=== PATIENT | male | born 1985 | race Caucasian/White ===

== ENCOUNTER 2019-10-15 04:31 | Outpatient (CLI) | payer OTHER, SELFPAY ==
[2019-10-15 18:08] LABS: SARS-CoV-2 RNA PCR Negative
== END 2019-10-15 04:32 | disposition home or self-care (01) ==
LOC: ANHCOVIDDT 04:32
PROVIDERS: PCP Family Medicine; Visit Provider Otolaryngology
DX: Z01.818 Encounter for other preprocedural examination (principal); Z11.59 Encounter for screening for other viral diseases
CPT/HCPCS: 87635; C9803; U0003

== ENCOUNTER 2019-10-18 00:57 | Day surgery (SDC) | payer OTHER, SELFPAY ==
[2019-10-05 16:00] VITALS: BMI 23.4
--- NOTE | 2019-10-11 06:29 | PM.HPGS ---
History of Present Illness History of Present Illness Consent: Risks, benefits, and alternatives have been discussed and questions answered. Patient agrees to proceed with procedure. Chief complaint: Chronic Tonsillitis Narrative: Romeo Hoyos is a 34 year old male with recurring episodes of tonsillitis he has been on multiple antibiotics he has chronic sore throats and he is admitted for tonsillectomy Review of Systems Review of Systems: All systems reviewed & are unremarkable except as noted in HPI and below PMFSH Social History Social History Smoking status: Former smoker Alcohol intake: current Meds Home Medications and Allergies Home Medications Medication Instructions Recorded Confirmed Type clindamycin HCl 300 mg capsule 300 mg PO Q8H #30 cap 10/05/19 10/05/19 Rx fexofenadine 60 mg tablet 60 mg PO Q12H 10/05/19 10/05/19 History fluticasone propionate 50 1 spray NASAL DAILY 10/05/19 10/05/19 History mcg/actuation nasal spray,suspension ibuprofen 200 mg capsule 200 mg PO Q6H PRN 10/05/19 10/05/19 History Allergies Allergy/AdvReac Type Severity Reaction Status Date / Time No Known Allergies Allergy Verified 10/05/19 15:48 Exam HENMT: Other: has examination reveals enlarged tonsils they are markedly cryptic in nature mouth oropharynx otherwise is normal tongue is normal chest clear hilar murmurs Abusin soft tissues Zaiz negative hypertrophic tonsils and adenoids chronic tonsillitis plan tonsillectomy risks procedure been explained consent obtained Assessment and Plan Additional Plan Plan is to remove his tonsils for his chronic tonsillitis
--- NOTE | 2019-10-17 12:56 | P.PNAN_ITS ---
Anes - Initial Pre Proc Eval Procedure: Operation Date: 10/18/19 09:30 Proposed Procedures p Tonsillectomy - Wesley Moraes MD Date/Time: 10/17/19 12:56 Surgeon: Wesley Moraes MD Pre Op Diagnosis: Chronic Tonsillitis Patient Data Age: 34 Gender: M Height: 1.8 m Weight: 76.2 kg Allergies Allergy/AdvReac Type Severity Reaction Status Date / Time No Known Allergies Allergy Verified 10/18/19 08:01 Home Medications Medication Instructions Recorded Confirmed Type clindamycin HCl 300 mg capsule 300 mg PO Q8H #30 cap 10/05/19 10/18/19 Rx fexofenadine 60 mg tablet 60 mg PO Q12H 10/05/19 10/18/19 History fluticasone propionate 50 1 spray NASAL DAILY 10/05/19 10/18/19 History mcg/actuation nasal spray,suspension ibuprofen 200 mg capsule 200 mg PO Q6H PRN 10/05/19 10/18/19 History Patient hx anesthesia problems: none Family hx anesthesia problems: none [facility] Social History Social History Smoking status: Former smoker Alcohol intake: current Anes - Eval Final PreProcedure Day of Procedure 10/17/19 12:56 Patient weight: normal Heart: regular rate and rhythm Lungs: clear to auscultation and normal air movement Airway: Mallampati scale class II Neurological: alert and oriented Last oral intake: >/= 8 hours ASA classification: II Emergent: no Anesthetic plan: proceed Anesthesia type and monitoring: general ETT Informed Consent: The patient's anesthetic plan and its attendant risks and benefits were discussed with the patient/family/POA. Questions were solicited and answers provided to the satisfaction of the patient/family/POA.
[2019-10-18] VITALS (7 sets, daily range): BP systolic 97–124; BP diastolic 48–72; PULSE 73–91; RESP 12–20; TEMP 36.2–36.4; O2SAT 96–99
--- NOTE | 2019-10-18 06:09 | WPDHPUPDATE1 ---
History and Physical Update Update Date/Time: 10/18/19 06:09 History and Physical has been reviewed, including an updated exam of the patient. There are NO changes in the patient's condition. Risks, benefits, and alternatives have been discussed and questions answered. Patient agrees to proceed with procedure.
[2019-10-18] MEDS: LACTATED RINGERS 1,000 ML 30 ML IV CONT (08:20)
--- NOTE | 2019-10-18 10:05 | PM.PROC ---
Procedure Note - Detailed Date of procedure: 10/18/19 Pre-op diagnosis: Chronic Tonsillitis Post-op diagnosis: same Procedure performed: Tonsillectomy Description of procedure: Patient was prepped and draped in usual fashion after induction of anesthesia. The McIvor mouth gag was inserted. The tonsils were removed dissection technique hemostasis was obtained electrocautery. The mouth was inspected for bleeding. When stablized patient was awaken and brought to the recovery room in good condition. Anesthesia: GLMA Surgeon: Wesley Moraes MD Estimated blood loss (mL): 15 Drains: No Packing: No Pathology: none sent Complications: No immediate complications Condition: stable Disposition: PACU
== END 2019-10-18 11:58 | disposition home health service (06) ==
PROVIDERS: PCP Family Medicine; Visit Provider Otolaryngology
PROC: (CPT 42826; principal; 2019-10-18 09:30)
DX: J35.01 Chronic tonsillitis (principal); Z87.891 Personal history of nicotine dependence
CPT/HCPCS: 42826; 88302; J0131; J0330; J1100; J2250; J2405; J2704; J3010; J7120

== ENCOUNTER 2019-12-15 10:59 | Outpatient (CLI) | payer OTHER, SELFPAY ==
--- NOTE | ~2019-12-15 | XR_ITS ---
EXAMINATION: XR chest 2V EXAM DATE: 12/15/2019 11:21 INDICATION: Cough. TECHNIQUE: Frontal and lateral projections of the chest obtained and reviewed. There is no prior rex dy for comparison. FINDINGS: The lungs are clear. There are no pleural effusions. The cardiomediastinal silhouette is within normal limits. There is no pneumothorax suspected. The bones and soft tissues are unremarkab le. IMPRESSION: Normal chest x-ray exam. Reviewed, dictated and finalized at location A. IMPRESSION: Normal chest x-ray exam.
== END 2019-12-15 11:00 | disposition home or self-care (01) ==
LOC: ANHIMG 11:09
PROVIDERS: PCP Family Medicine; Visit Provider Family Medicine
DX: R05 Cough (principal)
CPT/HCPCS: 71046

== ENCOUNTER 2021-01-30 14:21 | Emergency (ER) | payer OTHER, SELFPAY ==
[2021-01-30 14:32] VITALS: BP 140/77; PULSE 97; RESP 20; TEMP 37.4; O2SAT 96
--- NOTE | 2021-01-30 15:04 | ED.URI ---
HPI - URI/Sore Throat General Chief Complaint: Upper Respiratory Infection Stated Complaint: Cough,Sore Throat,Chills Time Seen by Provider: 01/30/21 14:44 Source: patient and RN notes reviewed Mode of arrival: ambulatory Limitations: no limitations History of Present Illness HPI Narrative: Patient presents today complaining of a 10-day history of sore throat, cough, postnasal drip, nasal congestion and sinus pressure. 4 days ago, patient had a fever of 100.8 as well. He has been taking DayQuil and NyQuil as well as his normal Singulair and albuterol. Currently rates his sore throat 06/27. MD elicited complaint: fever, cough, sore throat, nasal congestion and sinus pain Related Data Allergies Allergy/AdvReac Type Severity Reaction Status Date / Time No Known Allergies Allergy Verified 01/30/21 14:30 Review of Systems Review of Systems: CONSTITUTIONAL: Denies body aches, chills, or sweats.+ Fever EYES: Denies visual changes, redness, or discharge. ENT: Denies rhinorrhea, or otalgia.+ Postnasal drip, nasal congestion, sinus pressure, sore throat CARDIOVASCULAR: Denies chest pain, palpitations, or edema. RESPIRATORY: Denies dyspnea.+ Cough GASTROINTESTINAL: Denies abdominal pain, nausea, vomiting, or diarrhea. GENITOURINARY: Denies dysuria or hematuria. SKIN: Denies rash, itching, or wounds. MUSCULOSKELETAL: Denies back pain, joint pain, or myalgia. NEUROLOGIC: Denies headache, numbness, tingling, or weakness. PSYCH: Denies depression or anxiety. [facility] Past Medical History Medical History (Updated 01/30/21 @ 15:08 by Pretty Mcgregor, KURT, ) Chronic tonsillar hypertrophy Cough Tonsillitis Family History Family History Other Diabetes mellitus Family history of coronary artery disease Family history of cystic fibrosis Social History Social History Smoking status: Former smoker Alcohol intake: current Comments At time of signature, I have reviewed and agree with nursing past medical, surgical, social and family history unless otherwise noted. Please see nursing chart for further information. There is no relevant family history pertinent to the presenting complaint Exam Narrative: GENERAL: Well-appearing, well-nourished, and in no acute distress. HEAD: Normocephalic, atraumatic. EYES: EOMI. No redness or drainage. Conjunctivae normal. ENT: Mucous membranes pink and moist. Nares clear. No rhinorrhea. TMs normal bilaterally. Throat mildly erythematous without edema or exudate. Uvula midline. NECK: Normal AROM. Supple. No lymphadenopathy. CHEST: No respiratory distress. Slight end expiratory wheeze throughout, otherwise clear. HEART: Regular rate and rhythm. No murmur appreciated. Normal peripheral pulses. EXTREMITIES: Normal range of motion. No edema. SKIN: Warm, dry, no rash. Capillary refill normal. Normal skin turgor. NEURO: No focal deficits. Alert and oriented x3. Gait steady. PSYCH: Normal affect. No signs of depression or anxiety. Course Vital Signs Vital signs: Vital Signs Temperature 99.3 F 01/30/21 14:32 Pulse Rate 97 01/30/21 14:32 Respiratory Rate 20 01/30/21 14:32 Blood Pressure 140/77 01/30/21 14:32 Pulse Oximetry 96 01/30/21 14:32 Temperature 99.3 F 01/30/21 14:32 Pulse Rate 97 01/30/21 14:32 Respiratory Rate 20 01/30/21 14:32 Blood Pressure 140/77 01/30/21 14:32 Pulse Oximetry 96 01/30/21 14:32 Reviewed. Pt has been instructed to follow up with his PCP regarding his elevated blood pressure today. MDM - URI/Sore Throat Differential Diagnosis Differential diagnosis: Likely upper respiratory infection, sinusitis, viral infection, bronchitis, pharyngitis and other (Strep throat, COVID-19) Lab Data Attestation: I reviewed the patient's lab results. Lab results narrative: Rapid strep negative, rapid COVID-19 test negat
== END 2021-01-30 15:10 | disposition home or self-care (01) ==
PROVIDERS: Emergency Provider Nurse Practitioner; PCP Family Medicine
DX: J40 Bronchitis, not specified as acute or chronic (principal); J01.90 Acute sinusitis, unspecified; Z20.822 Contact with and (suspected) exposure to COVID-19; Z87.891 Personal history of nicotine dependence
CPT/HCPCS: 87081; 87426; 87880; 99213; C9803; G0463

== ENCOUNTER 2022-01-10 00:18 | Day surgery (SDC) | payer OTHER, SELFPAY ==
[2021-12-25 14:43] VITALS: BMI 26.5
--- NOTE | 2022-01-09 16:38 | PM.HPGS ---
History of Present Illness History of Present Illness Consent: Risks, benefits, and alternatives have been discussed and questions answered. Patient agrees to proceed with procedure. Chief complaint: cough, GERD Narrative: Gustavo Hoyos is a 36 year old male referred for endoscopy because of persistent reflux symptoms. 1 of his primary symptoms is that he has been coughing. this happens day and night. He has been tried on pantoprazole, but is not sure that is helping . He has a constant sore throat for the past few years in fact for the last several weeks is been continuous, 24 hours a day. He saw an Ear Nose Throat physician who said that he is very red and attributed his symptoms to reflux. he also has had difficulty swallowing. Lately for instance If he eats hamburger it may feel as though it is caught in his throat. He will have to drink some water to help it get down. He has not lost weight. Review of Systems Review of Systems: All systems reviewed & are unremarkable except as noted in HPI and below PMFSH Past Medical History Medical History BMI 28.0-28.9,adult Chronic tonsillar hypertrophy Cough Tonsillectomy planned Tonsillitis Family History Family History Father Heart disease Acute myocardial infarction Heart valve replaced Mother No problems noted. 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 Gender identity (if verbalized by the patient): Male Meds Home Medications and Allergies Home Medications Medication Instructions Recorded Confirmed Type albuterol sulfate 90 mcg/actuation 1 inhalation inhalation Q4H PRN 12/15/19 12/25/21 Rx aerosol inhaler shortness of breath or wheezing #8 grams montelukast 10 mg tablet 10 mg PO DAILY #90 tabs 01/16/20 12/25/21 Rx (Singulair) fluticasone propionate 50 1 spray intranasal DAILY 02/06/21 12/25/21 History mcg/actuation nasal spray,suspension (Flonase Allergy Relief) pantoprazole 20 mg tablet,delayed 20 mg PO QAM 4 weeks #28 tabs 12/30/21 Rx release Allergies Allergy/AdvReac Type Severity Reaction Status Date / Time No Known Allergies Allergy Verified 01/10/22 08:32 Exam Const: General: alert Orientation/consciousness: patient oriented x3 Resp: Auscultation: clear to auscultation bilaterally Cardio: Rhythm: regular rhythm GI: GI Palp: Yes Soft to palpation and No Tenderness to palpation present (GI) Neuro: General: patient oriented x3 Assessment and Plan Assessment and plan (1) GERD (gastroesophageal reflux disease): Code(s): K21.9 - Gastro-esophageal reflux disease without esophagitis Status: Acute Assessment and Plan: EGD with possible biopsy or dilatation or cautery.
[2022-01-10 08:32] VITALS: BP 132/68; PULSE 69; RESP 17; TEMP 36.4; O2SAT 98
[2022-01-10] MEDS: LACTATED RINGERS 1,000 ML 150 ML IV CONT (08:41)
--- NOTE | 2022-01-10 08:56 | WPDANESEPPF ---
Anes - Initial Pre Proc Eval Procedure: Operation Date: 01/10/22 09:30 Proposed Procedures p Esophagogastroduodenoscopy - Ken Dunn MD Date/Time: 01/10/22 08:56 Surgeon: Ken Dunn MD Pre Op Diagnosis: cough, GERD Patient Data Age: 36 Gender: M Height: 1.8 m Weight: 91.9 kg Last Vital Signs Temp 97.5 F L 01/10/22 08:32 Pulse 69 01/10/22 08:32 Resp 17 01/10/22 08:32 BP 132/68 01/10/22 08:32 Pulse Ox 98 01/10/22 08:32 O2 Del Method Room Air 01/10/22 08:32 Allergies Allergy/AdvReac Type Severity Reaction Status Date / Time No Known Allergies Allergy Verified 01/10/22 08:32 Home Medications Medication Instructions Recorded Confirmed Type albuterol sulfate 90 mcg/actuation 1 inhalation inhalation Q4H PRN 12/15/19 12/25/21 Rx aerosol inhaler shortness of breath or wheezing #8 grams montelukast 10 mg tablet 10 mg PO DAILY #90 tabs 01/16/20 12/25/21 Rx (Singulair) fluticasone propionate 50 1 spray intranasal DAILY 02/06/21 12/25/21 History mcg/actuation nasal spray,suspension (Flonase Allergy Relief) pantoprazole 20 mg tablet,delayed 20 mg PO QAM 4 weeks #28 tabs 12/30/21 Rx release Patient hx anesthesia problems: none Family hx anesthesia problems: none Results Review: All pre-operative results and documents have been reviewed as part of the pre-operative evaluation. [facility] Past Medical History Medical History BMI 28.0-28.9,adult Chronic tonsillar hypertrophy Cough Tonsillectomy planned Tonsillitis Family History Family History Father Heart disease Acute myocardial infarction Heart valve replaced Mother No problems noted. 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 Informed Consent: The patient's anesthetic plan and its attendant risks and benefits were discussed with the patient/family/POA. Questions were solicited and answers provided to the satisfaction of the patient/family/POA.
[2022-01-10] MEDS: BENZOCAINE (*SP) 60 ML SPRAY CAN (HURRICAINE) 1 SPRAY MUCOUS MEM (09:30)
[2022-01-10 09:47] VITALS: BP 105/66; PULSE 70; RESP 19; O2SAT 95
[2022-01-10 09:57] VITALS: BP 110/77; PULSE 71; RESP 20; O2SAT 96
[2022-01-10 10:07] VITALS: BP 115/76; PULSE 70; RESP 22; O2SAT 100
== END 2022-01-10 10:12 | disposition home or self-care (01) ==
PROVIDERS: PCP Family Medicine; Visit Provider Internal Medicine Gastroenterology
PROC: 0DJ08ZZ Inspection of Upper Intestinal Tract, Via Natural or Artificial Opening Endoscopic (ICD-10-PCS; CPT 43235; principal; 2022-01-10 09:30)
DX: K21.00 Gastro-esophageal reflux disease with esophagitis, without bleeding (principal); K22.2 Esophageal obstruction; D13.1 Benign neoplasm of stomach; R50.9 Fever, unspecified; Z79.51 Long term (current) use of inhaled steroids; Z87.891 Personal history of nicotine dependence; J02.9 Acute pharyngitis, unspecified
CPT/HCPCS: 43239; 43249; 88305; C1726; J2704; J7120

== ENCOUNTER 2022-02-15 15:30 | Emergency (ER) | payer OTHER, SELFPAY ==
[2022-02-15 15:40] VITALS: BP 135/75; PULSE 97; RESP 18; TEMP 36.3; O2SAT 97
--- NOTE | 2022-02-15 15:46 | ED.GENADULT ---
HPI - General Adult General Chief complaint: Ear Stated complaint: lt ear pain History of Present Illness HPI narrative: Patient is a 36 y/o male who presents to the [facility] via POV for an evaluation of left ear pain that has been present for a few days. Additionally, he reports nasal congestion and runny nose began 1 week ago. OTC meds and nasal rinses are providing some relief. Nothing worsens symptoms. Related Data Allergies Allergy/AdvReac Type Severity Reaction Status Date / Time No Known Allergies Allergy Verified 01/10/22 08:32 Review of Systems Review of Systems: Pertinent negatives fever, chills, sweats, change in appetite, poor p.o. intake, malaise, headache, sinus problems, tinnitus, vertigo, lightheadedness, hearing loss, muffled hearing, ear drainage, nausea, vomiting, sore throat, cough, shortness of breath, lymphadenopathy, chest pain, heart palpitations, and heart murmur. PMFSH Past Medical History Medical History BMI 28.0-28.9,adult Chronic tonsillar hypertrophy Cough Tonsillectomy planned Tonsillitis Family History Family History Father Heart disease Acute myocardial infarction Heart valve replaced Mother No problems noted. 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 There is no relevant family history pertinent to the presenting complaint. Exam Narrative: GENERAL: Well-appearing, well-nourished, and in no acute distress. HEAD: Normocephalic, atraumatic. No sinus tenderness or facial swelling appreciated. EYES: PERRLA and EOMI. No evidence of erythema, swelling, or drainage. ENT:, RIGHT TM BULGING WITH A MODERATE AMOUNT OF CLOUDY FLUID NOTED BEHIND TM. BILATERAL TURBINATES ARE MODERATELY EDEMATOUS. SCANT AMOUNT OF CLEAR NASAL DRAINAGE NOTED TO BILATERAL NARES. LEFT TM NORMAL. Bilateral external ears and ear canals normal. No TM perforation. No epistaxis. Bilateral turbinates without erythema/ swelling. Mucous membranes moist and pink. Uvula is midline without erythema and swelling. No evidence of petechial rash, cobblestoning, lesions, ulcers, erythema, swelling, exudates, peritonsillar abscess, tenting, or drooling. Breath odor and voice normal. NECK: Supple. No Lymphadenopathy or nuchal rigidity appreciated. CHEST: Bilateral lung river are clear to auscultation. No respiratory distress. No evidence of cough or pleuritic cp upon examination. HEART: Regular rate and rhythm. No murmur, gallop, or rub heard. EXTREMITIES: Normal range of motion. No edema. SKIN: Warm, dry, no rash. NEURO: No focal deficits. Alert and oriented x3. Course Course Emergency Course: Amoxicillin for treatment of otitis media. Steroids for treatment of URI symptoms Follow-up with PCP within 2-3 days for continuance of care Level of Care: Express Care Visit Vital Signs Vital signs: Vital Signs Temperature 97.4 F L 02/15/22 15:40 Pulse Rate 97 02/15/22 15:40 Respiratory Rate 18 02/15/22 15:40 Blood Pressure 135/75 02/15/22 15:40 Pulse Oximetry 97 02/15/22 15:40 Oxygen Delivery Room Air 02/15/22 15:40 Temperature 97.4 F L 02/15/22 15:40 Pulse Rate 97 02/15/22 15:40 Respiratory Rate 18 02/15/22 15:40 Blood P
== END 2022-02-15 16:10 | disposition home or self-care (01) ==
PROVIDERS: Emergency Provider Nurse Practitioner Family; PCP Family Medicine
DX: H66.92 Otitis media, unspecified, left ear (principal); Z87.891 Personal history of nicotine dependence
CPT/HCPCS: 99213; G0463

== ENCOUNTER 2023-07-16 09:06 | Outpatient (CLI) | payer OTHER, SELFPAY ==
--- NOTE | ~2023-07-16 | CT_ITS ---
EXAMINATION: CT sinus wo con DATE: 07/16/2023 09:19 INDICATION: Chronic sinusitis TECHNIQUE: Computed tomography (CT) of the paranasal sinuses was performed without intravenous contra st. The dose-length product was 299.47 mGy-cm. Automated exposure control and iterative reconstructio n technique were employed. COMPARISON: No prior studies for comparison. FINDINGS: There is mucosal thickening of the ethmoid, maxillary and sphenoid sinuses. The frontal sin uses are not developed. There is mucoperiosteal reaction of the maxillary sinuses. There are surgical changes of the maxillary sinuses bilaterally. Leftward nasal septal deviation. There is a left masto id effusion. IMPRESSION: 1. Advanced pansinusitis which appears chronic. 2: Left mastoid effusion. Reviewed, dictated and finalized at location L.
== END 2023-07-16 09:07 ==
LOC: MICIMG 09:07
PROVIDERS: PCP Otolaryngology; Visit Provider Otolaryngology
DX: J32.4 Chronic pansinusitis (principal); H74.8X2 Other specified disorders of left middle ear and mastoid
CPT/HCPCS: 70486

== ENCOUNTER 2023-08-12 01:27 | Emergency (ER) | payer OTHER, SELFPAY ==
--- NOTE | ~2023-08-12 | CT_ITS ---
CT of the Abdomen and Pelvis: Indication: Abdominal pain Technique: 2.5 mm axial scans were obtained through the abdomen and pelvis following intravenous adm inistration of 100 cc of Omnipaque 350. Dose reduction technique was used on this scan by utilizing a utomated exposure control and iterative reconstruction technique. The dose-length product (DLP) was 6 53.71 mGy-cm. Findings: Scans through the lung bases demonstrate focal semisolid/ground glass opacity/consolidatio n in the right lower lobe (axial image 4), questionable minimal tree-in-bud opacities in the right mi ddle lobe and left lower lobe.. The liver, spleen, pancreas, gallbladder, adrenals and kidneys are within normal limits. No evidence of aortic aneurysm. No lymphadenopathy. No bowel obstruction or bowel wall thickening. There is no evidence to suggest acute appendicitis. Images through the pelvis were performed. Urinary bladder unremarkable. No pelvic mass seen. No ascit es. Impression: Findings at the lung bases, as detailed above, suspicious for infectious/inflammatory process. No other significant findings in the abdomen or pelvis. Reviewed, dictated and finalized at location . Impression: Findings at the lung bases, as detailed above, suspicious for infectious/inflam matory process. No other significant findings in the abdomen or pelvis.
[2023-08-12 01:31] VITALS: BP 145/82; PULSE 79; RESP 16; TEMP 36.6; O2SAT 98
[2023-08-12 01:51] LABS: Basophils Absolute Auto 0.1 K/mm3 (0.0-0.1); Basophils Percent Auto 0.4 % (0.2-1.2); Eosinophils Absolute Auto 0.2 K/mm3 (0-0.3); Eosinophils Percent Auto 1.4 % (0-4.4); Hematocrit 42.9 % (42.0-52.0); Hemoglobin 14.5 g/dL (14.0-18.0); Immature Granulocyte Absolute 0.05 K/mm3 (0.00-0.031); Immature Granulocyte Percent A 0.3 % (0-0.5); Lymphocytes Absolute Auto 3.76 K/mm3 (0.9-3.2); Lymphocytes Percent Auto 24.3 % (18.3-44.2); Mean Corpuscular HGB Conc 33.8 g/dl (32-36); Mean Corpuscular Hemoglobin 30.6 pg (26-34); Mean Corpuscular Volume 90.5 fl (80-100); Mean Platelet Volume 8.6 fl (7.4-10.4); Monocytes Absolute Auto 1.2 K/mm3 (0.1-0.6); Monocytes Percent Auto 7.4 % (2.6-8.5); Neutrophils Absolute Auto 10.2 K/mm3 (1.3-6.7); Neutrophils Percent Auto 66.2 % (45.5-73.1); Platelet Count Result 299 k/mm3 (150-375); Red Blood Count 4.74 M/mm3 (4.6-6.20); Red Cell Distribution Width 12.8 % (11.5-14.5); White Blood Count 15.5 K/mm3 (4.5-10.0)
[2023-08-12 01:56] LABS: Appearance Urine Clear (Clear); Bilirubin Urine Negative (Negative); Blood Urine Negative (Negative); Color Urine Yellow (Yellow); Glucose Urine UA Negative (Negative); Ketones Urine Negative (Negative); Leukocyte Esterase Ur Negative LEU/UL (Negative); Nitrate Urine Negative (Negative); Protein Urine Negative (Negative); Specific Grav Ur 1.017 (1.001-1.035); Urobilinogen Urine 0.2 mg/dL (<2.0); pH Urine 6.5 (5.0-9.0)
[2023-08-12 02:02] LABS: Alanine Aminotransferase 22 U/L (6-50); Albumin Level 4.7 g/dL (3.5-5.1); Alkaline Phosphatase 123 U/L (38-126); Anion Gap 7 mmol/L (4-12); Aspartate Amino Transferase 25 U/L (17-59); Bilirubin,Total 0.5 mg/dL (0.2-1.3); Blood Urea Nitrogen 13 mg/dL (9-20); Calcium 9.6 mg/dL (8.4-10.2); Carbon Dioxide 25 mmol/L (22-30); Chloride 103 mmol/L (98-107); Estimated CRCL calculation 131 ml/min; Estimated Glomerular Filt Rate > 60; Glucose 124 mg/dL (65-110); Lipase 160 U/L (23-300); Potassium 3.6 mmol/L (3.4-5.0); Sodium 135 mmol/L (137-145)
[2023-08-12 02:02] LABS: Add Urine Microscopic? NO
--- NOTE | 2023-08-12 05:03 | ED.ABDPAIN ---
HPI - Abdominal Pain General Chief Complaint: Abdominal Pain Stated Complaint: abd pain, nausea Time Seen by Provider: 08/12/23 04:31 History of Present Illness HPI narrative: Patient is a 38-year-old male who presents to the emergency department this evening complaining of generalized abdominal pain. Patient states that pain initially started on Thursday but it did subside, however, this evening pain returned and has been persistent since then. Patient denies any similar symptoms in the past. He admits to history of acid reflux, admits to marijuana use but states that he has not smoked marijuana in a while and denies any previous abdominal surgeries. Patient admits to nausea and vomiting and denies any diarrhea or constipation. Related Data Home Medications Medication Instructions Recorded Confirmed azelastine 137 mcg (0.1 %) nasal 1 spray intranasal ONCE 02/26/22 08/11/23 spray aerosol fexofenadine 180 mg tablet 180 mg PO DAILY 04/16/23 08/11/23 (Indira Allergy) fluticasone fur. 200 mcg-umeclid 1 inh inhalation DAILY 04/16/23 08/11/23 62.5 mcg-vilant 25 mcg inhalat.powder (Trelegy Ellipta) albuterol sulfate 90 mcg/actuation 1 inh inhalation QID PRN Shortness 08/11/23 08/11/23 aerosol inhaler Of Breath fluticasone propionate 50 1 spray intranasal Q12H 08/11/23 08/11/23 mcg/actuation nasal spray,suspension Allergies Allergy/AdvReac Type Severity Reaction Status Date / Time No Known Allergies Allergy Verified 08/11/23 10:23 Review of Systems Review of Systems: All systems are reviewed and are negative unless stated otherwise in the HPI. [facility] Past Medical History Medical History BMI 27.0-27.9,adult BMI 28.0-28.9,adult Chronic tonsillar hypertrophy Cough Tonsillectomy planned Tonsillitis Family History Family History Father Heart disease Acute myocardial infarction Heart valve replaced Mother No problems noted. 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 HEENT: PERRL, no rhinorrhea, no post nasal drip, oropharynx clear. Neck: Trachea midline, no JVD, no lymphadenopathy. Cardiovascular: Regular rate and rhythm, no murmurs, rubs or gallops, no peripheral edema. Respiratory: Clear to auscultation bilaterally, no tachypnea, no wheezing, no rhonchi, no rubs, no respiratory distress. Abdomen: Soft, nontender, nondistended, no rebound, no guarding, no peritoneal signs. Musculoskeletal: No joint swelling or deformity, normal muscle tone. Skin: No rashes or petechia, no signs of infection. Psychiatric: Alert and oriented, normal behavior and judgment for situation. Neurological: Alert and oriented to person, place, and time. Follows all commands. No focal deficits, speech is clear and fluent. Course Vital Signs Vital signs: Vital Signs Temperature 97.8 F 08/12/23 01:31 Pulse Rate 79 08/12/23 01:31 Respiratory Rate 16 08/12/23 01:31 Blood Pressure 145/82 H 08/12/23 01:31 Pulse Oximetry 98 08/12/23 01:31 Oxygen Delivery Room Air 08/12/23 01:31 Temperature 97.8 F 08/12/23 01:31 Pulse Rate 79 08/12/23 01:31 Respiratory Rate 16
[2023-08-12] MEDS: ONDANSETRON INJ 4 MG/2 ML VIAL IV PUSH (05:06)
[2023-08-12] MEDS: SODIUM CHLORIDE 0.9% IV 1,000 ML 999 ML IV CONT (05:06)
[2023-08-12] MEDS: PANTOPRAZOLE SODIUM IV 40 MG VIAL IV PUSH (05:08)
[2023-08-12] MEDS: DICYCLOMINE HCL INJ 20 MG/2 ML VIAL IM (05:09)
[2023-08-12] MEDS: SUCRALFATE 1 GM TABLET PO (06:04)
[2023-08-12] MEDS: MORPHINE SULFATE (*CRX) 2 MG/ML INJ IV PUSH (06:05)
[2023-08-12 06:53] VITALS: BP 129/85; PULSE 90; RESP 18; TEMP 36.6; O2SAT 100
== END 2023-08-12 06:56 | disposition home or self-care (01) ==
PROVIDERS: Emergency Provider Emergency Medicine; PCP Family Medicine
DX: R10.13 Epigastric pain (principal); Z87.891 Personal history of nicotine dependence
CPT/HCPCS: 36415; 74177; 80053; 81003; 83690; 85025; 96361; 96372; 96374; 96375; 99284; A9270; C9113; J0500; J2270; J2405; J7030; Q9967

== ENCOUNTER 2023-08-18 00:11 | Day surgery (SDC) | payer OTHER, SELFPAY ==
[2023-08-11 10:24] VITALS: BMI 27.8
--- NOTE | 2023-08-11 10:28 | PC.NURSE ---
Report to the Outpatient Waiting Room, entrance under the green pavilion located off [facility], at time 0700 on date 08/18/23. Planned Procedure Time: 0900. Time changes happen often and if your time is changed the preop area will call you the afternoon before. - You and your visitor will be asked to self-screen and do not enter if you have any COVID symptoms. - A mask is optional within the hospital at this time. Patients may have clear liquids (water, carbonated beverages, clear teas, apple juice) until 3 hours prior to surgery with a maximum of 20 ounces. - No food from midnight until time of surgery Take the following medications with a SIP of water the morning of surgery: INHALER (AND BRING ALBUTEROL) DO NOT STOP ANY OF YOUR OTHER PRESCRIPTION MEDICATIONS PRIOR TO SURGERY ?EXCEPT THE FOLLOWING Medications to discontinue per physician: N/A Date to take last dose: N/A Please no make-up, nail thai, hairspray, perfume, deodorant, or body powder the day of surgery. No jewelry (including any body piercings) or valuables the day of surgery, leave them at home. Please take a shower or bath the night before, or the morning of, surgery with an antibacterial soap. Wear comfortable, loose fitting clothing. - Jewelry must be removed prior to entering the operating room. Rings and piercings that are not removed may be cut off. - The hospital will not accept responsibility for valuables. - Please leave all valuables, including medications, at home the day of surgery. If you are going home after surgery, a licensed regional company hazmat tanker driver must drive you home. - NO public transportation without another adult if you receive anesthesia. - We recommend that an adult stay with you for 24 hours following discharge. - We also recommend that you do not drive, make important decision, drink alcoholic beverages, or take any drugs that were not prescribed by your health care provider for at least 24 hours after your discharge time. Follow any additional instructions given to you from your surgeon. If you or anyone in your household have experienced Covid symptoms in the past week, please notify your surgeon or the nurse liaison at the phone number below for possible testing. Telephone instructions given to PT- ANTONY and asked if any additional questions and then verbalized understanding. Patient advised to call surgeon office or pre surgery nurse liaison [phone] if any additional questions.
--- NOTE | 2023-08-17 17:09 | PM.IMHP ---
H&P: HPI History of Present Illness Date/Time: 08/17/23 17:09 Chief Complaint: chronic sinusitis septal deviation turbinate hypertrophy nasal obstruction Narrative: planned procedure Review of Systems Review of Systems: All systems reviewed & are unremarkable except as noted in HPI and below PMFSH Past Medical History Medical History BMI 27.0-27.9,adult BMI 28.0-28.9,adult Chronic tonsillar hypertrophy Cough Tonsillectomy planned Tonsillitis Family History Family History Father Heart disease Acute myocardial infarction Heart valve replaced Mother No problems noted. 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 200 mcg-umeclid 1 inh inhalation DAILY 04/16/23 08/11/23 History 62.5 mcg-vilant 25 mcg inhalat.powder (Trelegy Ellipta) albuterol sulfate 90 mcg/actuation 1 inh inhalation QID PRN Shortness 08/11/23 08/11/23 History aerosol inhaler Of Breath fluticasone propionate 50 1 spray intranasal Q12H 08/11/23 08/11/23 History mcg/actuation nasal spray,suspension ondansetron 4 mg disintegrating 4 mg PO Q8H PRN nausea and 08/12/23 Rx tablet vomiting #10 tabs pantoprazole 40 mg tablet,delayed 40 mg PO HS 4 weeks #28 tabs 08/12/23 Rx release (Protonix) Allergies Allergy/AdvReac Type Severity Reaction Status Date / Time No Known Allergies Allergy Verified 08/11/23 10:23 Exam Narrative: turbinate hypertrophy septal deviation chronic appearing sinuses Assessment and Plan Assessment and plan (1) Chronic sinusitis: Code(s): J32.9 - Chronic sinusitis, unspecified Status: Acute Assessment and Plan: risks discussed sorry plan or bilateral ESS total ethmoid max is sphenoids septoplasty turbinate reduction bilaterally with outfracture. 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 (2) Nasal septal deviation: Code(s): J34.2 - Deviated nasal septum Status: Acute (3) Hypertrophy of both inferior nasal turbinates: Code(s): J34.3 - Hypertrophy of nasal turbinates Status: Acute
[2023-08-18] VITALS (9 sets, daily range): BP systolic 112–130; BP diastolic 70–83; PULSE 70–115; RESP 12–20; TEMP 36.1–36.6; O2SAT 92–100
[2023-08-18] MEDS: ACETAMINOPHEN 500 MG TABLET 1000 MG PO (07:09)
[2023-08-18] MEDS: LACTATED RINGERS 1,000 ML 30 ML IV CONT ×2 (07:10→12:38)
--- NOTE | 2023-08-18 07:18 | WPDHPUPDATE1 ---
History and Physical Update Update Date/Time: 08/18/23 07:18 History and Physical has been reviewed, including an updated exam of the patient. There are NO changes in the patient's condition. Risks, benefits, and alternatives have been discussed and questions answered. Patient agrees to proceed with procedure. Plan is bilateral maxillary antrostomy, septo turbs total ethmoids sphenoids fareed
--- NOTE | 2023-08-18 08:13 | WPDANESEPPF ---
Anes - Initial Pre Proc Eval Procedure: Operation Date: 08/18/23 09:00 Proposed Procedures p Image Guided Endoscopic Bilateral Maxillary Antrostomy,Bilateral Total Ethmoidectomy, Bilateral Sphenoidotomy, Bilateral Inferior Turbinate Reduction with Outfracture, - Cirilo Lainez MD s Septoplasty - Cirilo Lainez MD Date/Time: 08/18/23 08:13 Surgeon: Cirilo Lainez MD Pre Op Diagnosis: chronic sinusitis, septal deviation Patient Data Age: 38 Gender: M Height: 1.8 m Weight: 85.5 kg Last Vital Signs Temp 36.6 C 08/18/23 06:58 Pulse 87 08/18/23 06:58 Resp 16 08/18/23 06:58 BP 124/79 08/18/23 06:58 Pulse Ox 97 08/18/23 06:58 O2 Del Method Room Air 08/18/23 06:58 Allergies Allergy/AdvReac Type Severity Reaction Status Date / Time No Known Allergies Allergy Verified 08/18/23 07:14 Home Medications Medication Instructions Recorded Confirmed Type montelukast 10 mg tablet 10 mg PO DAILY #90 tabs 01/16/20 08/11/23 Rx (Singulair) azelastine 137 mcg (0.1 %) nasal 1 spray intranasal ONCE 02/26/22 08/11/23 History spray aerosol fexofenadine 180 mg tablet 180 mg PO DAILY 04/16/23 08/11/23 History (Indira Allergy) fluticasone fur. 200 mcg-umeclid 1 inh inhalation DAILY 04/16/23 08/11/23 History 62.5 mcg-vilant 25 mcg inhalat.powder (Trelegy Ellipta) albuterol sulfate 90 mcg/actuation 1 inh inhalation QID PRN Shortness 08/11/23 08/11/23 History aerosol inhaler Of Breath fluticasone propionate 50 1 spray intranasal Q12H 08/11/23 08/11/23 History mcg/actuation nasal spray,suspension ondansetron 4 mg disintegrating 4 mg PO Q8H PRN nausea and 08/12/23 08/18/23 Rx tablet vomiting #10 tabs pantoprazole 40 mg tablet,delayed 40 mg PO HS 4 weeks #28 tabs 08/12/23 08/18/23 Rx release (Protonix) Patient hx anesthesia problems: none Family hx anesthesia problems: none Results Review: All pre-operative results and documents have been reviewed as part of the pre-operative evaluation. [facility] Past Medical History Medical History BMI 27.0-27.9,adult BMI 28.0-28.9,adult Chronic tonsillar hypertrophy Cough Tonsillectomy planned Tonsillitis Family History Family History Father Heart disease Acute myocardial infarction Heart valve replaced Mother No problems noted. 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 Informed Consent: The patient's anesthetic plan and its attendant risks and benefits were discussed with the patient/family/POA. Questions were solicited and answers provided to the satisfaction of the patient/family/POA.
--- NOTE | 2023-08-18 08:30 | WPDHPUPDATE1 ---
History and Physical Update Update Date/Time: 08/18/23 08:30 History and Physical has been reviewed, including an updated exam of the patient. There are NO changes in the patient's condition. Risks, benefits, and alternatives have been discussed and questions answered. Patient agrees to proceed with procedure. At possible transnasal adenoidectomy
[2023-08-18] MEDS: ceFAZolin 2 GM/D5W 50 ML 2 GM/50 ML BAG IVPB (08:38)
[2023-08-18] MEDS: LIDO 1%/EPINEPHRINE 1:100,000 50 ML VIAL 25 ML INFILTRATE (09:20)
[2023-08-18] MEDS: OXYMETAZOLINE HCL 0.05% NAS 15 ML BTL (*BKC) 1 SPRAY NASAL (09:20)
[2023-08-18] MEDS: MUPIROCIN 2% OINT 22 GM TUBE 1 APPLIC EACH NARE (12:10)
[2023-08-18] MEDS: fentaNYL CITRATE INJ (*CRX) 100 MCG/2 ML VIAL 25 MCG IV PUSH ×4 (12:53→13:13)
--- NOTE | 2023-08-18 13:04 | P.OP_ITS ---
Procedure Note - Detailed Date of Procedure 08/18/23 Pre-op Diagnosis chronic sinusitis, septal deviation , adenoid hypertrophy, turbinate hypertrophy, nasal obstruction Post-op Diagnosis Same Procedure Performed transnasal adenoidectomy, bilateral inferior turbinate reduction with outfracture, endoscopic assisted septoplasty, bilateral image guided endoscopic maxillary antrostomies total ethmoidectomies sphenoidotomies Surgeon Cirilo Lainez MD Anesthesia General Indications see above Findings really osteitic bone diffuse polypoid tissue in all the aforementioned sinuses large turbinates severe left septal deviation large adenoids Description of Procedure patient identified consent verified preop. Patient brought to the operating room. Time-out performed. General anesthesia induced endotracheal tube secured patient prepped draped position procedure confirmed 2nd time-out performed. 0 degree endoscope was sorry image guidance initiated confirmed Afrin-soaked pledgets placed for 5 minutes then removed. 0 degree endoscope utilized total 15 cc 1% lidocaine 1 100 parts epinephrine injected bilateral nasal septum inferior turbinates Josue incision made left side left nasal septal flap elevated no tear osteotome utilized crossover right nasal septal flap elevated no tear deviated septum removed Will Burgess forceps Jorge L forceps osteotome. Bleeding vessel inferiorly bipolar suction Bovie utilized to cauterize it. FloSeal placed suctioned out septum close Josue incision with 3 interrupted 5 0 fast gut sutures. Turbinates entered with 15 blade entered with microdebrider 2.5 Sincere debrided submucosal plane outfracture [place] elevator. Maxillary antrostomies performed with double ball-tip probe straight through cut backbiter image guided suctions image guided 40 degree microdebrider straight microdebrider no damage to nasolacrimal duct no damage to orbit diffuse polypoid tissue in both. Ethmoids performed with [place] straight through cut microdebrider really osteitic bone difficult to get and all the ethmoid cells. Sphenoids very difficult to get into his are very small done so under image guidance with sphenoid punch [place]. We wound copiously irrigated no a pack placed bilaterally Rodrigez splints placed ensured ensured to be lateral to the middle turbinates. Rodrigez splints sutured anteriorly using a 3-0 mattress nylon suture. Wound was copiously irrigated prior to this. Care the patient given Anesthesiology referral date portion was suture no complications. adenoids Bovie with suction Bovie electrocautery setting 30 the rib very large hypert rophied and obstructive no bleeding. Estimated Blood Loss 125 Drains No Packing Yes ( Nova pack) Pathology None sent Complications No immediate complications Condition Stable Disposition PACU [facility] Billing Surgery - Charge Forward: Surgery Billing
[2023-08-18] MEDS: ONDANSETRON INJ 4 MG/2 ML VIAL IV PUSH (13:23)
[2023-08-18] MEDS: oxyCODONE HCL (*CRX) 5 MG TAB IR PO (14:15)
== END 2023-08-18 14:56 | disposition home or self-care (01) ==
PROVIDERS: PCP Family Medicine; Visit Provider Otolaryngology
PROC: (CPT 31256; principal; 2023-08-18 09:00)
PROC: (CPT 30520; 2023-08-18 09:00)
DX: J32.9 Chronic sinusitis, unspecified (principal); J34.2 Deviated nasal septum; J34.3 Hypertrophy of nasal turbinates; J34.89 Other specified disorders of nose and nasal sinuses; Z79.51 Long term (current) use of inhaled steroids; Z87.891 Personal history of nicotine dependence
CPT/HCPCS: 31256; 31257; 61782; 30520; 30140; 42999; A9270; J0330; J0690; J1100; J2250; J2405; J2704; J3010; J7040; J7120

== ENCOUNTER 2023-08-22 12:14 | Emergency (ER) | payer OTHER, SELFPAY ==
[2023-08-22 12:16] VITALS: BP 127/92; PULSE 106; RESP 18; TEMP 36.9; O2SAT 100
--- NOTE | 2023-08-22 12:36 | ED.GENADULT ---
HPI - General Adult General Chief complaint: Unspecified Stated complaint: ENT Time Seen by Provider: 08/22/23 12:26 History of Present Illness HPI narrative: 38-year-old male present to the emergency department for evaluation of increased anxiety due to difficulty breathing through his nose after recent sinus surgery by Dr. Lainez. Patient states approximately 5 days ago he had placement of stents in his sinuses Related Data Home Medications Medication Instructions Recorded Confirmed azelastine 137 mcg (0.1 %) nasal 1 spray intranasal ONCE 02/26/22 08/11/23 spray aerosol fexofenadine 180 mg tablet 180 mg PO DAILY 04/16/23 08/11/23 (Indira Allergy) fluticasone fur. 200 mcg-umeclid 1 inh inhalation DAILY 04/16/23 08/11/23 62.5 mcg-vilant 25 mcg inhalat.powder (Trelegy Ellipta) albuterol sulfate 90 mcg/actuation 1 inh inhalation QID PRN Shortness 08/11/23 08/11/23 aerosol inhaler Of Breath fluticasone propionate 50 1 spray intranasal Q12H 08/11/23 08/11/23 mcg/actuation nasal spray,suspension Allergies Allergy/AdvReac Type Severity Reaction Status Date / Time No Known Allergies Allergy Verified 08/18/23 07:14 Review of Systems Review of Systems: All systems reviewed & are unremarkable except as noted in HPI and below PMFSH Past Medical History Medical History BMI 27.0-27.9,adult BMI 28.0-28.9,adult Chronic tonsillar hypertrophy Cough Tonsillectomy planned Tonsillitis Family History Family History Father Heart disease Acute myocardial infarction Heart valve replaced Mother No problems noted. 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 HEAD: normocephalic, atraumatic. EYES: PERRLA/EOMI, conjunctivae clear. NOSE: Decreased air passage through nostrils bilaterally EARS:TMS clear with good light reflex. THROAT: Pharynx clear, no exudate. NECK: Supple. No adenopathy, no masses. RESPIRATORY: Airway patent, respirations nonlabored. Clear to auscultation bilaterally, no rales, rhonchi, wheezing. CARDIOVASCULAR: Regular rate and rhythm without murmurs rubs or gallops. ABDOMINAL: Soft, nontender, nondistended, normal bowel sounds MUSCULOSKELETAL: Moves all extremities. Strength/ROM intact, No edema, No calf tenderness. NEURO: Alert. Cranial nerves II through XII intact. Grossly SKIN: Warm, dry. Normal Color Course Vital Signs Vital signs: Vital Signs Temperature 98.5 F 08/22/23 12:16 Pulse Rate 106 H 08/22/23 12:16 Respiratory Rate 18 08/22/23 12:16 Blood Pressure 127/92 H 08/22/23 12:16 Pulse Oximetry 100 08/22/23 12:16 Oxygen Delivery Room Air 08/22/23 12:16 Temperature 97.8 F 08/22/23 13:37 Pulse Rate 90 08/22/23 13:37 Respiratory Rate 18 08/22/23 13:37 Blood Pressure 113/81 08/22/23 13:37 Pulse Oximetry 99 08/22/23 13:37 Oxygen Delivery Room Air 08/22/23 12:16 Medical Decision Making MDM Narrative Medical decision making narrative: 38-year-old male presenting to the emergency department for evaluation for nasal congestion with stents after recent sinus surgery. Patient was met in the em
[2023-08-22 12:45] VITALS: BP 121/97; PULSE 110; RESP 20; TEMP 36.6; O2SAT 100
[2023-08-22 13:15] VITALS: BP 118/87; PULSE 107; RESP 18; TEMP 36.6; O2SAT 100
--- NOTE | 2023-08-22 13:19 | WPDPROCEDUR ---
Procedures Other Procedures Procedure 1: Other Procedure: Bilateral nasal endoscopy with debridement. Consent obtained splints removed bilateral nasal passages debrided some packing on the right side I could not get out in the emergency room. Patient tolerated the procedure very well everything looks good
--- NOTE | 2023-08-22 13:19 | WPDCN ---
Assessment and Plan Assessment and plan (1) Nasal crusting: Code(s): J34.89 - Other specified disorders of nose and nasal sinuses Status: Acute Assessment and Plan: Splints removed. Routine postoperative instructions mupirocin ointment 3-4 times per day upfront budesonide irrigations b.i.d. follow-up Thursday when get a closer look on this right side. No strenuous activity for 2 weeks gentle nose blowing is okay open mouth sneezing finish antibiotics finished steroids (2) Sinus congestion: Code(s): R09.81 - Nasal congestion Status: Acute (3) Chronic sinusitis: Code(s): J32.9 - Chronic sinusitis, unspecified Status: Acute HPI Data of Consult Date/Time: 08/22/23 13:19 Primary Care Provider: Yamil Tam MD Consult Narrative Narrative: Gustavo Hoyos is a 38 year old male postop day 4 ESS septo turbs patient could not tolerate splints presents to ER Review of Systems Review of Systems: All systems reviewed & are unremarkable except as noted in HPI and below PMFSH Past Medical History Medical History BMI 27.0-27.9,adult BMI 28.0-28.9,adult Chronic tonsillar hypertrophy Cough Tonsillectomy planned Tonsillitis Family History Family History Father Heart disease Acute myocardial infarction Heart valve replaced Mother No problems noted. 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 200 mcg-umeclid 1 inh inhalation DAILY 04/16/23 08/11/23 History 62.5 mcg-vilant 25 mcg inhalat.powder (Trelegy Ellipta) albuterol sulfate 90 mcg/actuation 1 inh inhalation QID PRN Shortness 08/11/23 08/11/23 History aerosol inhaler Of Breath fluticasone propionate 50 1 spray intranasal Q12H 08/11/23 08/11/23 History mcg/actuation nasal spray,suspension ondansetron 4 mg disintegrating 4 mg PO Q8H PRN nausea and 08/12/23 08/18/23 Rx tablet vomiting #10 tabs pantoprazole 40 mg tablet,delayed 40 mg PO HS 4 weeks #28 tabs 08/12/23 08/18/23 Rx release (Protonix) budesonide 0.25 mg/2 mL suspension 0.25 mg (2 mL) irrigation Q12H 08/18/23 08/18/23 Rx for nebulization #120 mL doxycycline hyclate 100 mg capsule 100 mg PO BID #14 caps 08/18/23 Rx oxycodone 5 mg tablet 5 mg PO .q8-q12h PRN pain #10 tabs 08/18/23 Rx prednisone 5 mg tablet 5 mg PO DAILY #14 tabs 08/18/23 Rx Allergies Allergy/AdvReac Type Severity Reaction Status Date / Time No Known Allergies Allergy Verified 08/18/23 07:14 Vital Signs Vital Signs - 24 hr 08/22/23 12:16 Temperature 36.9 C Pulse Rate 106 H Respiratory Rate 18 Blood Pressure 127/92 H Pulse Oximetry 100 Oxygen Delivery Room Air Exam Narrative: Splints removed things look good procedure
[2023-08-22 13:37] VITALS: BP 113/81; PULSE 90; RESP 18; TEMP 36.6; O2SAT 99
== END 2023-08-22 13:41 | disposition home or self-care (01) ==
PROVIDERS: Emergency Provider Emergency Medicine; PCP Family Medicine
DX: J34.89 Other specified disorders of nose and nasal sinuses (principal); R09.81 Nasal congestion; J32.9 Chronic sinusitis, unspecified; Z98.890 Other specified postprocedural states; Z87.891 Personal history of nicotine dependence
CPT/HCPCS: 30999; 99283

== ENCOUNTER 2023-08-28 11:18 | Outpatient (CLI) | payer OTHER, SELFPAY ==
[2023-08-28 11:41] LABS: Hematocrit 44.8 % (42.0-52.0); Hemoglobin 14.2 g/dL (14.0-18.0); Mean Corpuscular HGB Conc 31.7 g/dl (32-36); Mean Corpuscular Hemoglobin 29.9 pg (26-34); Mean Corpuscular Volume 94.3 fl (80-100); Mean Platelet Volume 8.4 fl (7.4-10.4); Platelet Count Result 415 k/mm3 (150-375); Red Blood Count 4.75 M/mm3 (4.6-6.20); Red Cell Distribution Width 12.7 % (11.5-14.5); White Blood Count 15.1 K/mm3 (4.5-10.0)
== END 2023-08-28 11:19 | disposition home or self-care (01) ==
LOC: ANHLAB 11:19
PROVIDERS: PCP Family Medicine; Visit Provider Nurse Practitioner
DX: D72.829 Elevated white blood cell count, unspecified (principal)
CPT/HCPCS: 36415; 85027

== ENCOUNTER 2023-09-04 12:08 | Outpatient (CLI) | payer OTHER, SELFPAY ==
--- NOTE | ~2023-09-04 | XR_ITS ---
Clinical Indication: Cough PA and lateral views of the chest: Comparison: 12/15/2019 Findings: Probable mild interstitial prominence noted, especially in the right lung. No pleural effus ion.. Cardiomediastinal silhouette is within normal limits. Bones and soft tissues are unremarkable. Impression: Probable mild reticulonodular interstitial prominence. Correlate for atypical infection. Consider tiffany st CT to further evaluate as indicated. Reviewed, dictated and finalized at location M. Impression: Probable mild reticulonodular interstitial prominence. Correlate for atypical i nfection. Consider chest CT to further evaluate as indicated.
== END 2023-09-04 12:09 ==
PROVIDERS: PCP Physician Assistant; Visit Provider Physician Assistant
DX: R05.9 Cough, unspecified (principal)
CPT/HCPCS: 71046

== ENCOUNTER 2023-09-17 07:23 | Outpatient (CLI) | payer OTHER, SELFPAY ==
--- NOTE | ~2023-09-17 | NM_ITS ---
EXAMINATION: NM hepatobiliary wo pharm DATE: 09/17/2023 10:10 INDICATION: Epigastric abdominal pain. Nausea and vomiting. COMPARISON: CT abdomen and pelvis 08/12/2023 TECHNIQUE: 5.0 mCi Tc-99m mebrofenin (Choletec) was administered intravenously. Scintigraphic images of the abdomen were obtained for one hour. Then, the patient drank 8 oz Ensure, and imaging was cont inued for 60 minutes. FINDINGS: There is normal clearance of radiotracer from the blood pool. There is homogeneous tracer u ptake by the liver. Activity progresses to the bowel and gallbladder. Gallbladder ejection fraction (GBEF) was 60%. Note that with this technique, normal GBEF >= 33%. IMPRESSION: 1. Normal hepatobiliary scintigraphy. Reviewed, dictated and finalized at location A.
== END 2023-09-17 07:24 | disposition home or self-care (01) ==
PROVIDERS: PCP Physician Assistant; Visit Provider Nurse Practitioner
DX: R11.2 Nausea with vomiting, unspecified (principal); R10.13 Epigastric pain
CPT/HCPCS: 78226; A9537

== ENCOUNTER 2023-09-24 08:25 | Outpatient (CLI) | payer OTHER, SELFPAY ==
--- NOTE | ~2023-09-24 | US_ITS ---
Limited Abdominal Sonogram: Real-time sonographic imaging of the right upper quadrant was performed. Clinical History: Nausea and vomiting Findings: The liver appears normal with no evidence of mass lesion or bile duct dilatation. Main por arianna vein demonstrates normal direction of flow. The gallbladder is well distended, and appears normal with no evidence of gallstone or wall thickening. The common bile duct measures 3 mm. The visualize d pancreas, aorta, and IVC are unremarkable. Impression: No significant abnormality seen. Reviewed, dictated and finalized at location . Impression: No significant abnormality seen.
== END 2023-09-24 08:26 | disposition home or self-care (01) ==
PROVIDERS: PCP Physician Assistant; Visit Provider Nurse Practitioner
DX: R10.13 Epigastric pain (principal); R11.2 Nausea with vomiting, unspecified
CPT/HCPCS: 76705

== ENCOUNTER 2023-10-06 00:35 | Day surgery (SDC) | payer OTHER, SELFPAY ==
[2023-09-23 11:06] VITALS: BMI 26.1
[2023-10-06 14:15] VITALS: BP 108/66; PULSE 78; RESP 16; TEMP 36.4; O2SAT 97
[2023-10-06] MEDS: LACTATED RINGERS 1,000 ML 150 ML IV CONT (14:21)
--- NOTE | 2023-10-06 14:48 | WPDANESEPPF ---
Anes - Initial Pre Proc Eval Procedure: Operation Date: 10/06/23 14:30 Proposed Procedures p Esophagogastroduodenoscopy - Manoj Ward MD Date/Time: 10/06/23 14:48 Surgeon: Manoj Ward MD Pre Op Diagnosis: GERD, Epigastric pain Patient Data Age: 38 Gender: M Height: 1.8 m Weight: 80.9 kg Last Vital Signs Temp 36.4 C L 10/06/23 14:15 Pulse 78 10/06/23 14:15 Resp 16 10/06/23 14:15 BP 108/66 10/06/23 14:15 Pulse Ox 97 10/06/23 14:15 O2 Del Method Room Air 10/06/23 14:15 Allergies Allergy/AdvReac Type Severity Reaction Status Date / Time No Known Allergies Allergy Verified 10/06/23 14:12 Home Medications Medication Instructions Recorded Confirmed Type montelukast 10 mg tablet 10 mg PO DAILY #90 tabs 01/16/20 10/01/23 Rx (Singulair) fexofenadine 180 mg tablet 180 mg PO DAILY 04/16/23 10/01/23 History (Indira Allergy) fluticasone fur. 200 mcg-umeclid 1 inh inhalation DAILY 04/16/23 10/06/23 History 62.5 mcg-vilant 25 mcg inhalat.powder (Trelegy Ellipta) albuterol sulfate 90 mcg/actuation 1 inh inhalation QID PRN Shortness 08/11/23 10/06/23 History aerosol inhaler Of Breath fluticasone propionate 50 1 spray intranasal Q12H 08/11/23 10/06/23 History mcg/actuation nasal spray,suspension ondansetron 4 mg disintegrating 4 mg PO Q8H PRN nausea and 08/12/23 10/01/23 Rx tablet vomiting #10 tabs budesonide 0.25 mg/2 mL suspension 0.25 mg (2 mL) irrigation Q12H 08/18/23 10/01/23 Rx for nebulization #120 mL mupirocin 2 % topical ointment 1 applic topical .COMPLEX #22 grams 08/24/23 10/01/23 Rx pantoprazole 40 mg tablet,delayed 40 mg PO HS #30 tabs 09/07/23 10/01/23 Rx release (Protonix) hydroxyzine HCl 25 mg tablet 25 mg PO HS 09/16/23 10/01/23 History ciprofloxacin 125 mg irrigation BID #60 caps 10/04/23 Rx Patient hx anesthesia problems: none Family hx anesthesia problems: none Results Review: All pre-operative results and documents have been reviewed as part of the pre-operative evaluation. [facility] Past Medical History Medical History (Updated 10/06/23 @ 15:36 by Cory Rosario DO) Asthma Chronic tonsillar hypertrophy Cough GERD (gastroesophageal reflux disease) Pseudomonas infection in nares - asymptomatic Tonsillectomy planned Tonsillitis Family History Family History Father Heart disease Acute myocardial infarction Heart valve replaced Mother No problems noted. Sibling Cystic fibrosis Lung transplant recipient Other Diabetes mellitus Family history of coronary artery disease Family history of cystic fibrosis Social History Social History Years smoked: 2 Smoking status: Former smoker Tobacco type: cigarettes Second hand tobacco smoke exposure: No Smoking end date: 04/20/03 Alcohol intake: never Substance use: never Substance use type: does not use Do You Feel Safe in your Home?: Yes Lack of Transportation: No Lack of Food: Never True Current Housing: I Have Housing Concerned About Future Housing: No Difficulty Paying Gas/Electric Bills: No Difficulty Paying for Meds: No Currently Unemployed: No Education: Master's Degree or Higher Difficulty w/ Childcare or Family Care: No Living arrangements: with family Occupation/Education: occupation 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
--- NOTE | 2023-10-06 15:00 | SUR.PREOP ---
1300 Patient informed of procedure delay- denies any needs at this time.
--- NOTE | 2023-10-06 15:38 | PM.HPGS ---
History of Present Illness History of Present Illness Consent: Risks, benefits, and alternatives have been discussed and questions answered. Patient agrees to proceed with procedure. Chief complaint: GERD, Epigastric pain Narrative: Gustavo Hoyos is a 38 year old male with episode of epigastric pain weeks ago that prompted ER visit, CT scan negative, no more pain since. Also h/o GERD on ppi which is well controlled, doing ok right now, also changed his diet. Review of Systems Review of Systems: All systems reviewed & are unremarkable except as noted in HPI and below PMFSH Past Medical History Medical History (Updated 10/06/23 @ 15:36 by Cory Rosario, ) Asthma Chronic tonsillar hypertrophy Cough GERD (gastroesophageal reflux disease) Pseudomonas infection in nares - asymptomatic Tonsillectomy planned Tonsillitis Family History Family History Father Heart disease Acute myocardial infarction Heart valve replaced Mother No problems noted. Sibling Cystic fibrosis Lung transplant recipient Other Diabetes mellitus Family history of coronary artery disease Family history of cystic fibrosis Social History Social History Years smoked: 2 Smoking status: Former smoker Tobacco type: cigarettes Second hand tobacco smoke exposure: No Smoking end date: 04/20/03 Alcohol intake: never Substance use: never Substance use type: does not use Do You Feel Safe in your Home?: Yes Lack of Transportation: No Lack of Food: Never True Current Housing: I Have Housing Concerned About Future Housing: No Difficulty Paying Gas/Electric Bills: No Difficulty Paying for Meds: No Currently Unemployed: No Education: Master's Degree or Higher Difficulty w/ Childcare or Family Care: No Living arrangements: with family Occupation/Education: occupation 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 200 mcg-umeclid 1 inh inhalation DAILY 04/16/23 10/06/23 History 62.5 mcg-vilant 25 mcg inhalat.powder (Trelegy Ellipta) albuterol sulfate 90 mcg/actuation 1 inh inhalation QID PRN Shortness 08/11/23 10/06/23 History aerosol inhaler Of Breath fluticasone propionate 50 1 spray intranasal Q12H 08/11/23 10/06/23 History mcg/actuation nasal spray,suspension ondansetron 4 mg disintegrating 4 mg PO Q8H PRN nausea and 08/12/23 10/01/23 Rx tablet vomiting #10 tabs budesonide 0.25 mg/2 mL suspension 0.25 mg (2 mL) irrigation Q12H 08/18/23 10/01/23 Rx for nebulization #120 mL mupirocin 2 % topical ointment 1 applic topical .COMPLEX #22 grams 08/24/23 10/01/23 Rx pantoprazole 40 mg tablet,delayed 40 mg PO HS #30 tabs 09/07/23 10/01/23 Rx release (Protonix) hydroxyzine HCl 25 mg tablet 25 mg PO HS 09/16/23 10/01/23 History ciprofloxacin 125 mg irrigation BID #60 caps 10/04/23 Rx Allergies Allergy/AdvReac Type Severity Reaction Status Date / Time No Known Allergies Allergy Verified 10/06/23 14:12 Vital Signs Vital Signs - 24 hr 10/06/23 14:15 Temperature 97.5 F L Pulse Rate 78 Respiratory Rate 16 Blood Pressure 108/66 Pulse Oximetry 97 Oxygen Delivery Room Air Exam Const: General: comfortable and no acute distress HENMT: Face/Nose/Sinus: Normal nares present Eyes: General: appearance normal, both eyes and all related structures Neck: Neck: no JVD Resp: Auscultation: clear to auscultation bilaterally Cardio: Rate: regular rate
[2023-10-06] MEDS: BENZOCAINE (*SP) 60 ML SPRAY CAN (HURRICAINE) 1 SPRAY MUCOUS MEM (15:44)
[2023-10-06 16:00] VITALS: BP 101/67; PULSE 81; RESP 22; O2SAT 100
[2023-10-06 16:10] VITALS: BP 98/57; PULSE 81; RESP 20; O2SAT 100
[2023-10-06 16:20] VITALS: BP 114/71; PULSE 78; RESP 22; O2SAT 99
== END 2023-10-06 16:28 | disposition home or self-care (01) ==
PROVIDERS: PCP Family Medicine; Referring Provider Nurse Practitioner; Visit Provider Internal Medicine Gastroenterology
PROC: 0DJ08ZZ Inspection of Upper Intestinal Tract, Via Natural or Artificial Opening Endoscopic (ICD-10-PCS; CPT 43235; principal; 2023-10-06 14:30)
DX: K22.2 Esophageal obstruction (principal); K29.50 Unspecified chronic gastritis without bleeding; K21.00 Gastro-esophageal reflux disease with esophagitis, without bleeding; J45.909 Unspecified asthma, uncomplicated; Z79.51 Long term (current) use of inhaled steroids; Z87.891 Personal history of nicotine dependence
CPT/HCPCS: 43239; 88305; J2704; J7120